=== PATIENT | female | born 1990 | race Caucasian/White ===

== ENCOUNTER 2016-09-24 05:29 | Emergency (ER) | payer OTHER ==
[2016-09-24 06:00] VITALS: BMI 21.4
[2016-09-24] MEDS ORDERED: SODIUM CHLORIDE 0.9% 1000 ML INFUS.BAG IV ONE (06:00)
[2016-09-24] MEDS ORDERED: ACETAMINOPHEN 325 MG TABLET (FP) PO ONE (06:07)
[2016-09-24] MEDS ORDERED: METOCLOPRAMIDE HCL INJECTION 10 MG/2 ML VIAL IVPUSH ONE (06:07)
--- NOTE | 2016-09-24 06:09 | PDOC ---
Attending Attestation - Resident Resident Name: Kelvin Felipe - ED Attending Attestation I have performed the following: I have examined & evaluated the patient, The case was reviewed & discussed with the resident, I agree w/resident's findings & plan, Exceptions are as noted - HPI HPI: 09/24/16 06:07 26-year-old female with medical history of migraines presents with 2 days of generalized weakness, chills, headache, nonproductive cough and sore throat. The patient is currently on her period. She states that she has developed the symptoms but denies any sick contacts. States that this has provoked her migraine/is a migraine-like headaches. Came to the ER for further evaluation. - Physicial Exam PE: 09/24/16 06:08 GENERAL: Awake, alert, and fully oriented, in no acute distress. Dry mucous membranes. HEAD: No signs of trauma EYES: PERRLA, EOMI, sclera anicteric, conjunctiva clear ENT: Auricles normal inspection, hearing grossly normal, nares patent, oropharynx clear without exudates. NECK: Normal ROM, supple, no lymphadenopathy, JVD, or masses LUNGS: Breath sounds equal, clear to auscultation bilaterally. No wheezes, and no crackles HEART: Regular rate and rhythm, normal S1 and S2, no murmurs, rubs or gallops ABDOMEN: Soft, nontender, normoactive bowel sounds. No guarding, no rebound. No masses EXTREMITIES: Normal range of motion, no edema. No clubbing or cyanosis. No cords, erythema, or tenderness NEUROLOGICAL: Cranial nerves II through XII grossly intact. Normal speech, normal gait SKIN: Warm, Dry, normal turgor, no rashes or lesions noted. - Medical Decision Making 09/24/16 06:08 I suspect that the patient has viral syndrome. We'll give IV fluids and treat her migraines. Check blood work, urine analysis and reassess. If the patient is feeling better and the workup is unremarkable, the patient can be discharged home with supportive care. Encourage by mouth intake.
[2016-09-24] MEDS ORDERED: ACETAMINOPHEN 325 MG TABLET (FP) ONE (06:21)
[2016-09-24] MEDS ORDERED: METOCLOPRAMIDE HCL INJECTION 10 MG/2 ML VIAL ONE (06:21)
--- NOTE | 2016-09-24 06:21 | PDOC ---
History of Present Illness - General Chief Complaint: Weakness Stated Complaint: WEAKNESS Time Seen by Provider: 09/24/16 05:39 History Source: Patient Exam Limitations: No Limitations - History of Present Illness Initial Comments: 09/24/16 06:09 Patient is a 26F with no significant PMH who presents to the ED with 2 days of weakness, feeling cold, and migraines. She admits to chills, a sore throat, a nonproductive cough, stuffy nose, and migraines. She denies any sick contacts, recent travel, diarrhea, vomiting, dysuria, discharge, trouble swallowing, and abdominal pain. She has been eating and drinking well. PSH: none Social: Does not drink, smoke, or use recreational drugs Allergies: none Meds: none Past History - Past Medical History Allergies/Adverse Reactions: Allergies Allergy/AdvReac Type Severity Reaction Status Date / Time No Known Allergies Allergy Verified 09/24/16 05:54 Home Medications: Ambulatory Orders NK [No Known Home Medication] 09/24/16 Suicide Attempt (Hx): No Other medical history: Pt denies - Psycho/Social/Smoking Cessation Hx Anxiety: No Suicidal Ideation: No Smoking Status: Yes Smoking History: Never smoked Number of Cigarettes Smoked Daily: 0 Information on smoking cessation initiated: No 'Breaking Loose' booklet given: 07/25/14 Hx Alcohol Use: No Drug/Substance Use Hx: No Substance Use Type: Marijuana Review of Systems - Review of Systems Able to Perform ROS?: Yes Is the patient limited Kiswahili proficient: No Constitutional: Yes: Chills, Diaphoresis. No: Fever Respiratory: No: Shortness of Breath Cardiac (ROS): No: Chest Pain ABD/GI: No: Nausea, Vomiting, Other (Abd pain) : No: Burning, Dysuria, Discharge Neurological: Yes: Headache *Physical Exam - Vital Signs Last Vital Signs Temp Pulse Resp BP Pulse Ox 97.9 F 79 19 105/70 97 09/24/16 05:55 09/24/16 05:55 09/24/16 05:55 09/24/16 05:55 09/24/16 05:55 - Physical Exam General Appearance: Yes: Nourished, Appropriately Dressed, Mild Distress. No: Apparent Distress HEENT: positive: Normal Voice Neck: positive: Trachea midline Respiratory/Chest: positive: Lungs Clear, Normal Breath Sounds. negative: Chest Tender Cardiovascular: positive: Regular Rhythm, Regular Rate, S1, S2 Gastrointestinal/Abdominal: positive: Normal Bowel Sounds, Flat, Soft. negative : Tender Extremity: positive: Normal Inspection. negative: Swelling Integumentary: positive: Dry, Warm Neurologic: positive: Fully Oriented, Alert, Normal Mood/Affect Medical Decision Making - Medical Decision Making 09/24/16 06:23 Patient is a 26F with complaints of a migraine, shivering, and sweats for 2 days. Most likely diagnosis is a viral syndrome. I am treating the patient symptomatically and will update the patient on labs and results as they come in.
[2016-09-24 06:22] LABS: BASOPHIL 0.5 % (0-2.0); EOSINOPHIL 0.1 % (0-4.5); MCH 29.2 pg (25.7-33.7); MCHC 33.6 g/dl (32.0-36.0); MEAN CELL VOLUME 86.9 fl (80-96); NEUTROPHILS 73.4 % (42.8-82.8); PLATELET COUNT 270 K/MM3 (134-434); RDW 12.7 % (11.6-15.6); WHITE BLOOD COUNT 11.6 K/mm3 (4.0-10.0)
[2016-09-24 06:52] LABS: ALBUMIN 3.7 g/dl (3.4-5.0); ALK PHOS 56 U/L (45-117); ANION GAP 8 (8-16); BILIRUBIN,TOTAL 0.9 mg/dL (0.2-1.0); CALCIUM 8.9 mg/dL (8.5-10.1); CO2 27 mmol/L (21-32); CREATININE 0.6 mg/dL (0.55-1.02); GLUCOSE,RANDOM 96 mg/dL (74-106); SGOT/AST 37 U/L (15-37); SGPT/ALT 35 U/L (12-78); TOT PROT 7.1 g/dl (6.4-8.2)
[2016-09-24 09:40] LABS: URINE APPEARANCE CLEAR; URINE BILIRUBIN NEGATIVE (NEGATIVE); URINE COLOR LTYELLOW; URINE GLUCOSE (UA) NEGATIVE (NEGATIVE); URINE KETONE NEGATIVE (NEGATIVE); URINE NITRITE NEGATIVE (NEGATIVE); URINE PROTEIN NEGATIVE (NEGATIVE); URINE UROBILINOGEN NEGATIVE mg/dL (0.2-1.0)
[2016-09-24 09:49] LABS: URINE BLOOD 2+ (NEGATIVE); URINE LEUK ESTERASE 3+ (NEGATIVE)
[2016-09-24 09:54] VITALS: BP 92/54; PULSE 81; TEMP 97.5
[2016-09-24 10:13] LABS: URINE MARIJUANA THC NEGATIVE ng/ml (CUTOFF=50); URINE MUCUS RARE; URINE RBC 2 /hpf (0-3); URINE WBC 26 /hpf (3-5)
--- NOTE | 2016-09-24 10:35 | PDOC ---
*Physical Exam - Vital Signs Last Vital Signs Temp Pulse Resp BP Pulse Ox 97.5 F L 81 18 92/54 99 09/24/16 09:53 09/24/16 09:53 09/24/16 09:53 09/24/16 09:53 09/24/16 09:53 ED Treatment Course - LABORATORY CBC & Chemistry Diagram: 09/24/16 06:10 09/24/16 06:10 - ADDITIONAL ORDERS Additional order review: Laboratory Results 09/24/16 09/24/16 09/24/16 08:22 08:22 06:10 Sodium 138 Potassium 4.0 Chloride 103 Carbon Dioxide 27 Anion Gap 8 BUN 11 Creatinine 0.6 Creat Clearance w eGFR > 60 Random Glucose 96 Calcium 8.9 Total Bilirubin 0.9 D AST 37 D ALT 35 D Alkaline Phosphatase 56 Total Protein 7.1 Albumin 3.7 Urine Color Ltyellow Urine Appearance Clear Urine pH 6.0 Urine Protein Negative Urine Glucose (UA) Negative Urine Ketones Negative Urine Blood 2+ H Urine Nitrite Negative Urine Bilirubin Negative Urine Urobilinogen Negative Ur Leukocyte Esterase 3+ H Urine RBC 2 Urine WBC 26 Ur Epithelial Cells Rare Urine Mucus Rare Urine HCG, Qual Negative Opiates Screen Negative Methadone Screen Negative Barbiturate Screen Negative Phencyclidine Screen Negative Ur Amphetamines Screen Negative MDMA (Ecstasy) Screen Negative Benzodiazepines Screen Negative Cocaine Screen Negative U Marijuana (THC) Screen Negative 09/24/16 06:10 RBC 4.05 MCV 86.9 MCHC 33.6 RDW 12.7 MPV 7.0 L D Neutrophils % 73.4 Lymphocytes % 17.0 Monocytes % 9.0 Eosinophils % 0.1 D Basophils % 0.5 - Medications Given in the ED: ED Medications Discontinued Medications Generic Name Dose Route Start Last Admin Trade Name Perri PRN Reason Stop Dose Admin Acetaminophen 650 mg 09/24/16 06:07 09/24/16 06:33 Tylenol - PO 09/24/16 06:08 650 mg ONCE ONE Administration Diphenhydramine HCl 25 mg 09/24/16 06:07 09/24/16 06:49 Benadryl Injection - IVPUSH 09/24/16 06:08 25 mg ONCE ONE Administration Metoclopramide HCl 10 mg 09/24/16 06:07 09/24/16 06:33 Reglan Injection - IVPUSH 09/24/16 06:08 10 mg ONCE ONE Administration Sodium Chloride 1,000 ml 09/24/16 06:00 09/24/16 06:33 Normal Saline - IV 09/24/16 06:01 1,000 ml ONCE ONE Administration Progress Note - Progress Note Progress Note: Patient presented to ER with chills, WILLARD, and weakness for 2 days. Initial basic labs run by Dr. Felipe showed WBC of 11.6. Remained in ER for urinalysis results. Patient transferred to my care after shift change - Urinalysis results showed some blood and leukocyte esterase; patient confirmed she is currently menstruating. Patient reports resolution of her headache and reports resolution of her symptoms. Suspect viral cause of all symptoms and will discharge to home with instructions to return if symptoms return. Medical Decision Making - Medical Decision Making 09/24/16 10:34 Patient presented to ER with chills, WILLARD, and weakness for 2 days. WBC of 11.6. Urinalysis showed some blood and leukocyte esterase - all else normal; patient confirmed she is currently menstruating. Resolution of headache reported, suspect viral etiology of symptoms. Will discharge to home with instructions to return if symptoms return. *DC/Admit/Observation/Transfer Diagnosis at time of Disposition: Viral infection - Discharge Dispostion Disposition: HOME Condition at time of disposition: Improved - Attestations Physician Attestion: 09/24/16 10:36 I, Dr. Morris Clemente, attest that this document has been prepared under my direction and personally reviewed by me in its entirety. I further attest, that it accurately reflects all work, treatment, procedures and medical decision -making performed by me.
--- NOTE | 2016-09-24 10:54 | PDOC ---
*Physical Exam - Vital Signs Last Vital Signs Temp Pulse Resp BP Pulse Ox 97.5 F L 81 18 92/54 99 09/24/16 09:53 09/24/16 09:53 09/24/16 09:53 09/24/16 09:53 09/24/16 09:53 ED Treatment Course - LABORATORY CBC & Chemistry Diagram: 09/24/16 06:10 09/24/16 06:10 - ADDITIONAL ORDERS Additional order review: Laboratory Results 09/24/16 09/24/16 09/24/16 08:22 08:22 06:10 Sodium 138 Potassium 4.0 Chloride 103 Carbon Dioxide 27 Anion Gap 8 BUN 11 Creatinine 0.6 Creat Clearance w eGFR > 60 Random Glucose 96 Calcium 8.9 Total Bilirubin 0.9 D AST 37 D ALT 35 D Alkaline Phosphatase 56 Total Protein 7.1 Albumin 3.7 Urine Color Ltyellow Urine Appearance Clear Urine pH 6.0 Urine Protein Negative Urine Glucose (UA) Negative Urine Ketones Negative Urine Blood 2+ H Urine Nitrite Negative Urine Bilirubin Negative Urine Urobilinogen Negative Ur Leukocyte Esterase 3+ H Urine RBC 2 Urine WBC 26 Ur Epithelial Cells Rare Urine Mucus Rare Urine HCG, Qual Negative Opiates Screen Negative Methadone Screen Negative Barbiturate Screen Negative Phencyclidine Screen Negative Ur Amphetamines Screen Negative MDMA (Ecstasy) Screen Negative Benzodiazepines Screen Negative Cocaine Screen Negative U Marijuana (THC) Screen Negative 09/24/16 06:10 RBC 4.05 MCV 86.9 MCHC 33.6 RDW 12.7 MPV 7.0 L D Neutrophils % 73.4 Lymphocytes % 17.0 Monocytes % 9.0 Eosinophils % 0.1 D Basophils % 0.5 - Medications Given in the ED: ED Medications Discontinued Medications Generic Name Dose Route Start Last Admin Trade Name Perri PRN Reason Stop Dose Admin Acetaminophen 650 mg 09/24/16 06:07 09/24/16 06:33 Tylenol - PO 09/24/16 06:08 650 mg ONCE ONE Administration Diphenhydramine HCl 25 mg 09/24/16 06:07 09/24/16 06:49 Benadryl Injection - IVPUSH 09/24/16 06:08 25 mg ONCE ONE Administration Metoclopramide HCl 10 mg 09/24/16 06:07 09/24/16 06:33 Reglan Injection - IVPUSH 09/24/16 06:08 10 mg ONCE ONE Administration Sodium Chloride 1,000 ml 09/24/16 06:00 09/24/16 06:33 Normal Saline - IV 09/24/16 06:01 1,000 ml ONCE ONE Administration *DC/Admit/Observation/Transfer Diagnosis at time of Disposition: Viral illness - Discharge Dispostion Disposition: HOME Condition at time of disposition: Improved - Patient Instructions Printed Discharge Instructions: Viral Gastroenteritis Additional Instructions: Please return to the ER if you have return or worsening of symptoms. See attached instructions for viral illness care.
== END 2016-09-24 11:29 | disposition home or self-care (01) ==
LOC: JER 05:29
PROC: 3E033GC Introduction of Other Therapeutic Substance into Peripheral Vein, Percutaneous Approach (ICD-10-PCS; principal; 2016-09-24)
PROC: 3E033GC Introduction of Other Therapeutic Substance into Peripheral Vein, Percutaneous Approach (ICD-10-PCS; 2016-09-24)
DX: B34.9 Viral infection, unspecified (principal)
CPT/HCPCS: 36415; 80053; 80307; 81003; 81015; 84703; 85025; 96374; 96375; 99284-25

== ENCOUNTER 2016-10-12 19:19 | Emergency (ER) | payer OTHER ==
[2016-10-12 19:53] VITALS: BP 118/82; PULSE 87; TEMP 98.5; BMI 23.1
[2016-10-12 20:20] LABS: URINE APPEARANCE CLOUDY; URINE BILIRUBIN NEGATIVE (NEGATIVE); URINE BLOOD 2+ (NEGATIVE); URINE COLOR YELLOW; URINE GLUCOSE (UA) NEGATIVE (NEGATIVE); URINE KETONE NEGATIVE (NEGATIVE); URINE NITRITE NEGATIVE (NEGATIVE); URINE UROBILINOGEN NEGATIVE mg/dL (0.2-1.0)
[2016-10-12 20:21] LABS: URINE LEUK ESTERASE 3+ (NEGATIVE); URINE PROTEIN 3+ (NEGATIVE)
[2016-10-12 20:28] LABS: URINE BACTERIA MODERATE /hpf (NONE SEEN); URINE RBC 225 /hpf (0-3); URINE WBC 432 /hpf (3-5)
--- NOTE | 2016-10-12 20:35 | PDOC ---
History of Present Illness - General Chief Complaint: Pain Stated Complaint: POSSIBLE UTI Time Seen by Provider: 10/12/16 19:49 History Source: Patient Exam Limitations: No Limitations - History of Present Illness Travel History: No Initial Comments: 10/12/16 20:33 Complaints of pain burning and frequency 3 days. No nausea no fevers, no back pain. States sister gave her 1 tablet of Bactrim yesterday thinking to help UTI complaints. Timing/Duration: reports: getting worse, changing over time Quality: reports: mild Abdominal Pain Onset Location: reports: suprapubic Pain Radiation: reports: no radiation Past History - Travel Traveled outside of the country in the last 30 days: No Close contact w/someone who was outside of country & ill: No - Past Medical History Allergies/Adverse Reactions: Allergies Allergy/AdvReac Type Severity Reaction Status Date / Time No Known Allergies Allergy Verified 10/12/16 19:42 Home Medications: Ambulatory Orders Cefdinir [Omnicef -] 300 mg PO BID #10 capsule 10/12/16 Phenazopyridine HCl [Pyridium -] 200 mg PO PC #12 tablet 10/12/16 Suicide Attempt (Hx): No Other medical history: Pt denies - Psycho/Social/Smoking Cessation Hx Anxiety: No Suicidal Ideation: No Smoking Status: Yes Smoking History: Current every day smoker Have you smoked in the past 12 months: Yes Number of Cigarettes Smoked Daily: 2 Information on smoking cessation initiated: No 'Breaking Loose' booklet given: 07/25/14 Hx Alcohol Use: No Drug/Substance Use Hx: No Substance Use Type: Marijuana Review of Systems - Review of Systems Able to Perform ROS?: Yes Is the patient limited Syriac proficient: Yes Constitutional: Yes: Symptoms Reported, See HPI, Malaise. No: Fever HEENTM: Yes: See HPI. No: Symptoms Reported Respiratory: Yes: See HPI. No: Symptoms reported : Yes: Symptoms Reported, See HPI, Burning, Dysuria, Frequency, Hematuria Musculoskeletal: No: Symptoms Reported All Other Systems: Reviewed and Negative *Physical Exam - Vital Signs Last Vital Signs Temp Pulse Resp BP Pulse Ox 98.5 F 87 20 118/82 97 10/12/16 19:42 10/12/16 19:42 10/12/16 19:42 10/12/16 19:42 10/12/16 19:42 - Physical Exam General Appearance: Yes: Nourished, Appropriately Dressed, Apparent Distress, Mild Distress HEENT: positive: ELMO, Normal ENT Inspection, TMs Normal, Pharynx Normal Neck: positive: Supple Respiratory/Chest: positive: Lungs Clear Cardiovascular: positive: Regular Rhythm Gastrointestinal/Abdominal: positive: Tender (suprapubic), Soft Musculoskeletal: positive: Normal Inspection. 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, Fully Oriented, Alert, Normal Mood/ Affect, Normal Response, Motor Strength 07/13 ED Treatment Course - ADDITIONAL ORDERS Additional order review: Laboratory Results 10/12/16 20:00 Urine Color Yellow Urine Appearance Cloudy Urine pH 8.0 D Urine Protein 3+ H Urine Glucose (UA) Negative Urine Ketones Negative Urine Blood 2+ H Urine Nitrite Negative Urine Bilirubin Negative Urine Urobilinogen Negative Ur Leukocyte Esterase 3+ H Urine HCG, Qual Negative Progress Note - Progress Note Progress Note: Urinaryn Tract infection, we'll treat with Omnicef/ pyridium *DC/Admit/Observation/Transfer Diagnosis at time of Disposition: UTI (urinary tract infection) Qualifiers: Urinary tract infection type: acute cystitis Hematuria presence: with hematuria Qualified Code(s): N30.01 - Acute cystitis with hematuria - Discharge Dispostion Disposition: HOME Condition at time of disposition: Stable Admit: No - Prescriptions Prescriptions: Cefdinir [Omnicef -] 300 mg PO BID #10 capsule Phenazopyridine HCl [Pyridium -] 200 mg PO PC #12 tablet - Patient Instructions Printed Discharge Instructions: DI for Urinary Tract Infection (UTI) Additional Instructions: Rest, drink lots of fluids: Teas, water, soups Avoid contact with others until fevers and symptoms resolved Lots of handwashing and good hygiene Continue [id number] medications for symptomatic relief Tylenol or Motrin for fever and pain Continue all of antibiotics until completed- Omnicef 1 tablet every 12 hours for 5 days total May use Pyridium tablet 1 every 8 hours as needed until painful urination stops Followup with private physician in one week for repeat urinalysis/reevaluation Return to emergency department for worsened symptoms, fevers, dehydration
== END 2016-10-12 20:38 | disposition home or self-care (01) ==
LOC: JERFT 19:19
DX: N30.01 Acute cystitis with hematuria (principal); F17.210 Nicotine dependence, cigarettes, uncomplicated
CPT/HCPCS: 81003; 81015; 84703; 87086; 87186; 99281-25

== ENCOUNTER 2017-03-28 15:26 | Emergency (ER) | payer OTHER ==
--- NOTE | 2017-03-28 15:34 | PDOC ---
Rapid Medical Evaluation Time Seen by Provider: 03/28/17 15:32 Medical Evaluation: Allergies Allergy/AdvReac Type Severity Reaction Status Date / Time No Known Allergies Allergy Verified 10/12/16 19:42 03/28/17 15:32 I have performed a brief in person evaluation of this patient. The patient presents with chief complaint of : urinary urgency and burning no fever . LMP 03/22/16 Pertinent PE findings: none I have ordered the following: urine preg, uA, urine culture The patient will proceed to the ER for further evaluation.
[2017-03-28 15:54] VITALS: BP 137/74; PULSE 78; TEMP 98.4; BMI 22.3
[2017-03-28 16:53] LABS: URINE APPEARANCE CLOUDY; URINE BILIRUBIN NEGATIVE (NEGATIVE); URINE BLOOD 2+ (NEGATIVE); URINE COLOR YELLOW; URINE GLUCOSE (UA) NEGATIVE (NEGATIVE); URINE KETONE NEGATIVE (NEGATIVE); URINE NITRITE NEGATIVE (NEGATIVE); URINE UROBILINOGEN NEGATIVE mg/dL (0.2-1.0)
[2017-03-28 16:54] LABS: HCG,QUALITATIVE URINE NEGATIVE
[2017-03-28 16:55] LABS: URINE LEUK ESTERASE 3+ (NEGATIVE); URINE PROTEIN 1+ (NEGATIVE)
[2017-03-28 16:57] LABS: EPI CELLS FEW /HPF (FEW); URINE BACTERIA MODERATE /hpf (NONE SEEN); URINE HYALINE CAST 12 /lpf; URINE MUCUS MODERATE
--- NOTE | 2017-03-28 17:13 | PDOC ---
History of Present Illness - General Chief Complaint: Urinary Problem Stated Complaint: PAIN Time Seen by Provider: 03/28/17 15:32 History Source: Patient Exam Limitations: No Limitations - History of Present Illness Travel History: No Initial Comments: 03/28/17 17:14 Here with complaints of pain, repeat, burning with urination 3 days. States experience same symptoms last summer and was diagnosed with urinary tract infection. Patient feels has same. Denies fevers or chills, but has felt malaise over the past few days. No bowel problems, no vaginal drainage or problems Timing/Duration: reports: getting worse Quality: reports: moderate, cramping, fullness Abdominal Pain Onset Location: reports: suprapubic Pain Radiation: reports: no radiation Past History - Travel Traveled outside of the country in the last 30 days: No Close contact w/someone who was outside of country & ill: No - Past Medical History Allergies/Adverse Reactions: Allergies Allergy/AdvReac Type Severity Reaction Status Date / Time No Known Allergies Allergy Verified 03/28/17 15:52 Home Medications: Ambulatory Orders Cefdinir [Omnicef -] 300 mg PO BID #10 capsule 03/28/17 Phenazopyridine HCl [Pyridium -] 200 mg PO PC #12 tablet 03/28/17 COPD: No Other medical history: DENIES. - Suicide/Smoking/Psychosocial Hx Smoking Status: Yes Smoking History: Never smoked Have you smoked in the past 12 months: Yes Number of Cigarettes Smoked Daily: 0 'Breaking Loose' booklet given: 07/25/14 Hx Alcohol Use: No Drug/Substance Use Hx: No Substance Use Type: Marijuana Review of Systems - Review of Systems Able to Perform ROS?: Yes Is the patient limited Djiboutian proficient: Yes Constitutional: Yes: Symptoms Reported, See HPI, Fever, Malaise HEENTM: Yes: See HPI. No: Symptoms Reported Respiratory: No: Symptoms reported : Yes: Symptoms Reported, See HPI, Burning, Dysuria, Frequency Musculoskeletal: Yes: Symptoms Reported Neurological: No: Symptoms reported All Other Systems: Reviewed and Negative *Physical Exam - Vital Signs Last Vital Signs Temp Pulse Resp BP Pulse Ox 98.4 F 78 16 137/74 98 03/28/17 15:53 03/28/17 15:53 03/28/17 15:53 03/28/17 15:53 03/28/17 15:53 - Physical Exam General Appearance: Yes: Nourished, Appropriately Dressed, Apparent Distress HEENT: positive: ELMO, Normal ENT Inspection, TMs Normal, Pharynx Normal Neck: positive: Supple. negative: Tender Respiratory/Chest: positive: Lungs Clear Gastrointestinal/Abdominal: positive: Tender, Soft. 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, Fully Oriented, Alert, Normal Mood/ Affect, Normal Response, Motor Strength 07/13 ED Treatment Course - ADDITIONAL ORDERS Additional order review: Laboratory Results 03/28/17 15:39 Urine Color Yellow Urine Appearance Cloudy Urine pH 5.0 D Ur Specific [place] 1.021 Urine Protein 1+ H D Urine Glucose (UA) Negative Urine Ketones Negative Urine Blood 2+ H Urine Nitrite Negative Urine Bilirubin Negative Urine Urobilinogen Negative Ur Leukocyte Esterase 3+ H Urine WBC (Auto) 1264 Urine RBC (Auto) 30 Ur Epithelial Cells Few Urine Bacteria Moderate Hyaline Casts 12 Urine Mucus Moderate Urine HCG, Qual Negative Progress Note - Progress Note Progress Note: UTI, we'll treat with Omnicef as responded well with last episode. Patient encouraged to follow-up with PMD and possibly urologist for evaluation of frequent UTI *DC/Admit/Observation/Transfer Diagnosis at time of Disposition: UTI (urinary tract infection) Qualifiers: Urinary tract infection type: acute cystitis Hematuria presence: without hematuria Qualified Code(s): N30.00 - Acute cystitis without hematuria - Discharge Dispostion Disposition: HOME Condition at time of disposition: Stable Admit: No - Referrals Referrals: Anjum Galarza MD [Staff Physician] - - Patient Instructions Printed Discharge Instructions: DI for Urinary Tract Infection (UTI) Additional Instructions: Rest, drink lots of fluids: Teas, water, soups Avoid contact with others until fevers and symptoms resolved Lots of handwashing and good hygiene Continue [id number] medications for symptomatic relief Tylenol or Motrin for fever and pain Continue all of antibiotics until completed Followup with private physician in one week for repeat urinalysis/reevaluation Return to emergency department for worsened symptoms, fevers, dehydration - Post Discharge Activity Forms/Work/School Notes: Back to Work
== END 2017-03-28 17:45 | disposition home or self-care (01) ==
LOC: JERFT 15:26 → JER 15:26 → JERFT 17:45
DX: N30.00 Acute cystitis without hematuria (principal)
CPT/HCPCS: 81003; 81015; 84703; 87086; 87186; 99281-25

== ENCOUNTER 2017-08-03 22:59 | Emergency (ER) | payer OTHER ==
[2017-08-03 23:05] VITALS: BP 112/69; PULSE 95; TEMP 98.5; BMI 24.2
--- NOTE | 2017-08-03 23:57 | PDOC ---
History of Present Illness - General Chief Complaint: Pain Stated Complaint: 16 WEEKS - ABDOMINAL PAIN Time Seen by Provider: 08/03/17 23:12 History Source: Patient Exam Limitations: No Limitations - History of Present Illness Travel History: No Initial Comments: 08/03/17 23:58 Best Contact: PCP:Mike Lopez Pmhx: N/A Pshx:N/A Allergies:NKDA FH:N/A Social Hx: Cigarettes/ 0 Alcohol/ 0 Drugs/0 LMP:04/12/2017 27-year-old female presents to the emergency department complaining of constipation with suprapubic cramping without fever, chills, nausea/vomiting, headache, dizziness, lightheadedness, chest pain, shortness of breath, abdominal discomfort, flank pains, urinary symptoms, frequency/urgency/hesitancy , hematuria. Patient states her last good bowel movement was approximately 7-8 days ago. Patient states she had a very small bowel movement yesterday which which is the size of a quarter. Had transvaginal US [id number] ago/wnl Past History - Past Medical History Allergies/Adverse Reactions: Allergies Allergy/AdvReac Type Severity Reaction Status Date / Time No Known Allergies Allergy Verified 08/03/17 23:04 Home Medications: Ambulatory Orders Cefdinir [Omnicef -] 300 mg PO BID #10 capsule 03/28/17 Phenazopyridine HCl [Pyridium -] 200 mg PO PC #12 tablet 03/28/17 Nitrofurantoin Monohyd/M-Cryst [Macrobid -] 100 mg PO BID #14 capsule 08/04/17 COPD: No - Suicide/Smoking/Psychosocial Hx Smoking Status: Yes Smoking History: Never smoked Have you smoked in the past 12 months: Yes Number of Cigarettes Smoked Daily: 0 'Breaking Loose' booklet given: 07/25/14 Hx Alcohol Use: No Drug/Substance Use Hx: No Substance Use Type: Marijuana Review of Systems - Review of Systems Able to Perform ROS?: Yes Comments:: 08/04/17 00:00 CONSTITUTIONAL: Absent: fever, chills, diaphoresis, generalized weakness, malaise, loss of appetite CARDIOVASCULAR: Absent: chest pain, loss of consciousness, palpitations, irregular heart rate, peripheral edema RESPIRATORY: Absent: cough, shortness of breath, dyspnea with exertion, orthopnea, wheezing, stridor, hemoptysis GASTROINTESTINAL: Left suprapubic cramping Absent: abdominal pain, abdominal distension, nausea, vomiting, diarrhea, constipation, melena, hematochezia GENITOURINARY: Absent: dysuria, frequency, urgency, hesitancy, hematuria, flank pain, genital pain MUSCULOSKELETAL: Absent: myalgia, arthralgia, joint swelling SKIN: Absent: rash, itching, pallor HEMATOLOGIC/IMMUNOLOGIC: Absent: easy bleeding, easy bruising, lymphadenopathy, frequent infections ENDOCRINE: Absent: unexplained weight gain, unexplained weight loss, heat intolerance, cold intolerance NEUROLOGIC: Absent: headache, focal weakness or paresthesias, dizziness, unsteady gait, seizure, mental status changes, bladder or bowel incontinence PSYCHIATRIC: Absent: anxiety, depression, suicidal or homicidal ideation, hallucinations. 08/04/17 00:25 Is the patient limited Wolof proficient: No *Physical Exam - Vital Signs Last Vital Signs Temp Pulse Resp BP Pulse Ox 98.5 F 95 H 18 112/69 98 08/03/17 23:04 08/03/17 23:04 08/03/17 23:04 08/03/17 23:04 08/03/17 23:04 - Physical Exam Comments: 08/04/17 00:00 GENERAL: Well developed, well nourished. Awake and alert. No acute distress. HEENT: Normocephalic, atraumatic. PERRLA, EOMI. No conjunctival pallor. Sclera are non- icteric. Moist mucous membranes. Oropharynx is clear. NECK: Supple. Full ROM. No JVD. Carotid pulses 2+ and symmetric, without bruits. No thyromegaly. No lymphadenopathy. CARDIOVASCULAR: Regular rate and rhythm. No murmurs, rubs, or gallops. Distal pulses are 2+ and symmetric. PULMONARY: No evidence of respiratory distress. Lungs clear to auscultation bilaterally. No wheezing, rales or rhonchi. ABDOMINAL: Soft. Non-tender. Non-distended. No rebound or guarding. No organomegaly. Normoactive bowel sounds. MUSCULOSKELETAL Normal range of motion at all joints. No bony deformities or tenderness. No CVA tenderness. EXTREMITIES: No cyanosis. No clubbing. No edema. No calf tenderness. SKIN: Warm and dry. Normal capillary refill. No rashes. No jaundice. NEUROLOGICAL: Alert, awake, appropriate. Cranial nerves 2-12 intact. No deficits to light touch and temperature in face, upper extremities and lower extremities. No motor deficits in the in face, upper extremities and lower extremities. Normoreflexic in the upper and lower extremities. Normal speech. Toes are down- going bilaterally. Gait is normal without ataxia. PSYCHIATRIC: Cooperative. Good eye contact. Appropriate mood and affect. Pelvic: External genitalia normal without lesions. Vaginal vault is clear without blood or discharge. Cervix is long and closed. ED Treatment Course - LABORATORY CBC & Chemistry Diagram: 08/04/17 00:10 08/04/17 00:10 - RADIOLOGY Radiograph Interpretation: 08/04/17 03:49 Transvaginal ultrasound shows live IUP with estimated age of 16 weeks and 1 day without abnormalities *DC/Admit/Observation/Transfer Diagnosis at time of Disposition: Constipation Qualifiers: Constipation type: unspecified constipation type Qualified Code(s): K59.00 - Constipation, unspecified UTI (urinary tract infection) Qualifiers: Urinary tract infection type: acute cystitis Hematuria presence: without hematuria Qualified Code(s): N30.00 - Acute cystitis without hematuria - Discharge Dispostion Disposition: HOME Condition at time of disposition: Stable Decision to Admit order: No - Prescriptions Prescriptions: Nitrofurantoin Monohyd/M-Cryst [Macrobid -] 100 mg PO BID #14 capsule - Referrals Referrals: Rashida Patel MD [Staff Physician] - - Patient Instructions Printed Discharge Instructions: DI for Urinary Tract Infection (UTI), DI for Constipation Additional Instructions: Increase fluids Take antibiotics until completion/Macrobid [id number] stool softener Follow-up with your workers compensation legal secretary within 48 hours Return back to the emergency department for severe/persistent or worsening symptoms Your beta hCG which is low [place] [address].6 You had a transvaginal ultrasound while in the emergency department today which shows a live intrauterine with estimated age of 16 weeks and 1 day without abnormalities - Post Discharge Activity
[2017-08-04] MEDS ORDERED: DOCUSATE SODIUM 100 MG CAPSULE (FP) PO ONE ×2 (00:25→01:19)
[2017-08-04 00:42] LABS: BASO % 0.3 % (0-2.0); HEMOGLOBIN 11.3 GM/dL (10.7-15.3); MCH 30.8 pg (25.7-33.7); NEUT % 72.9 % (42.8-82.8)
[2017-08-04 00:49] LABS: EOS % 0.9 % (0-4.5); HEMATOCRIT 32.6 % (32.4-45.2); LYMPH % 18.2 % (8-40); MCHC 34.6 g/dl (32.0-36.0); MEAN CELL VOLUME 88.8 fl (80-96); MONO % 7.7 % (3.8-10.2); RBC 3.67 M/mm3 (3.60-5.2); RDW 13.7 % (11.6-15.6); WHITE BLOOD COUNT 9.8 K/mm3 (4.0-10.0)
[2017-08-04 00:51] LABS: ALBUMIN 3.4 g/dl (3.4-5.0); ANION GAP 8 (8-16); BILIRUBIN,TOTAL 0.3 mg/dL (0.2-1.0); BLOOD UREA NITROGEN 8 mg/dL (7-18); CALCIUM 8.5 mg/dL (8.5-10.1); CHLORIDE 104 mmol/L (98-107); CO2 24 mmol/L (21-32); CREATININE 0.5 mg/dL (0.55-1.02); GLUCOSE,RANDOM 79 mg/dL (74-106); SGPT/ALT 17 U/L (12-78); SODIUM 136 mmol/L (136-145); TOT PROT 7.1 g/dl (6.4-8.2)
[2017-08-04 00:52] LABS: URINE APPEARANCE CLEAR; URINE BILIRUBIN NEGATIVE (<2.0 mg/dL); URINE COLOR YELLOW; URINE GLUCOSE (UA) NEGATIVE (NEGATIVE); URINE KETONE NEGATIVE (NEGATIVE); URINE LEUK ESTERASE TRACE (NEGATIVE); URINE NITRITE NEGATIVE (NEGATIVE); URINE PROTEIN NEGATIVE (NEGATIVE)
[2017-08-04 00:59] LABS: EPI CELLS RARE /HPF (FEW); URINE BACTERIA RARE /hpf (NONE SEEN); URINE MUCUS RARE
[2017-08-04 01:08] LABS: ALK PHOS 36 U/L (45-117)
[2017-08-04 01:09] LABS: POTASSIUM 4.3 mmol/L (3.5-5.1); SGOT/AST 24 U/L (15-37)
--- NOTE | 2017-08-04 01:14 | PDOC ---
*Physical Exam - Vital Signs Last Vital Signs Temp Pulse Resp BP Pulse Ox 98.5 F 95 H 18 112/69 98 08/03/17 23:04 08/03/17 23:04 08/03/17 23:04 08/03/17 23:04 08/03/17 23:04 - Physical Exam Comments: 08/04/17 01:10 VSS well appearing, nad soft/nt/nd bs nl. ? suprapubic discomfort to palpation, no g/r. no cvat. ED Treatment Course - LABORATORY CBC & Chemistry Diagram: 08/04/17 00:10 08/04/17 00:10 - ADDITIONAL ORDERS Additional order review: Laboratory Results 08/04/17 08/04/17 00:10 00:10 Sodium 136 Potassium 4.3 Chloride 104 Carbon Dioxide 24 Anion Gap 8 BUN 8 Creatinine 0.5 L Creat Clearance w eGFR > 60 Random Glucose 79 Calcium 8.5 Total Bilirubin 0.3 D AST 24 ALT 17 Alkaline Phosphatase 36 L Total Protein 7.1 Albumin 3.4 Beta HCG, Quant 48983.6 Urine Color Yellow Urine Appearance Clear Urine pH 7.0 D Ur Specific [place] 1.023 Urine Protein Negative Urine Glucose (UA) Negative Urine Ketones Negative Urine Blood Negative Urine Nitrite Negative Urine Bilirubin Negative Urine Urobilinogen 2.0 H Ur Leukocyte Esterase Trace Urine WBC (Auto) 7 Urine RBC (Auto) 1 Ur Epithelial Cells Rare Urine Bacteria Rare Urine Mucus Rare 08/04/17 00:10 RBC 3.67 MCV 88.8 MCHC 34.6 RDW 13.7 Neutrophils % 72.9 Lymphocytes % 18.2 Monocytes % 7.7 Eosinophils % 0.9 D Basophils % 0.3 Medical Decision Making - Medical Decision Making 08/04/17 01:11 Patient seen and evaluated with the nurse practitioner. I agree with the overall evaluation, assessment, and management with the following summary of visit: Healthy 27-year-old female at about 16 weeks gestation presents with suprapubic discomfort today. No bleeding or discharge, no dysuria or frequency, no fevers or chills. Has been constipated for a few days, no vomiting. Presents for evaluation, has had normal ultrasounds so far in her . Vital signs are normal Abdomen is benign with very mild suprapubic discomfort to palpation 27-year-old female second trimester with lower abdominal/suprapubic cramping, no bleeding. Possible UTI, possible constipation, rule out [employer] source. Labs, urinalysis ultrasound Dispo accordingly UA with trace leuk and 7WBC. Pending ultrasound. If u/s wnl, can d/c home on empiric abx (cx sent) and suppository. *DC/Admit/Observation/Transfer Diagnosis at time of Disposition: Constipation Qualifiers: Constipation type: unspecified constipation type Qualified Code(s): K59.00 - Constipation, unspecified UTI (urinary tract infection) Qualifiers: Urinary tract infection type: acute cystitis Hematuria presence: without hematuria Qualified Code(s): N30.00 - Acute cystitis without hematuria - Discharge Dispostion Condition at time of disposition: Stable - Prescriptions Prescriptions: Nitrofurantoin Monohyd/M-Cryst [Macrobid -] 100 mg PO BID #14 capsule - Referrals Referrals: Rashida Patel MD [Staff Physician] - - Patient Instructions Printed Discharge Instructions: DI for Urinary Tract Infection (UTI), DI for Constipation Additional Instructions: Increase fluids Take antibiotics until completion/Macrobid [id number] stool softener Follow-up with your executive search consultant within 48 hours Return back to the emergency department for severe/persistent or worsening symptoms - Post Discharge Activity
[2017-08-04] MEDS ORDERED: NITROFURANTOIN MACROCRYSTAL 50 MG CAPSULE (FP) PO SCH (01:15)
[2017-08-04] MEDS ORDERED: NITROFURANTOIN MACROCRYSTAL 50 MG CAPSULE (FP) ONE (01:19)
[2017-08-04 01:52] LABS: MEAN PLT VOLUME 8.4 fl (7.5-11.1); PLATELET COUNT 225 K/MM3 (134-434)
== END 2017-08-04 04:23 | disposition home or self-care (01) ==
LOC: JER 22:59
DX: O26.892 Other specified pregnancy related conditions, second trimester (principal); O23.32 Infections of other parts of urinary tract in pregnancy, second trimester; K59.00 Constipation, unspecified; Z3A.16 16 weeks gestation of pregnancy
CPT/HCPCS: 36415; 76801-TC; 80053; 81003; 81015; 84702; 85025; 99281-25

== ENCOUNTER 2017-11-11 19:56 | Emergency (ER) | payer OTHER ==
[2017-11-11 20:08] VITALS: BMI 25.2
[2017-11-11] MEDS ORDERED: SODIUM CHLORIDE 0.9% 500 ML INFUS.BAG IV ONE (20:52)
--- NOTE | 2017-11-11 21:00 | PDOC ---
History of Present Illness - General History Source: Patient Exam Limitations: No Limitations - History of Present Illness Initial Comments: 11/11/17 20:53 Patient is a 27 year old female , LMP 04/13/17, who is 30 weeks , c/ o dizziness - vertigo since this am. States sudden onset of symptoms while she was eating this morning. States she laid down went to sleep but when she work up this evening she still had dizziness. States currently symptoms and not very bad. Denies vaginal bleeding, no leakage of fluid, no abd pain, no dysuria. (+) kicks. PMD: Dr. Barton OBS: [address] PMHx: as above PSOCHx: neg etoh, drug, ALL: NKDA GENERAL/CONSTITUTIONAL: [No fever or chills. No weakness. No weight change.] HEAD, EYES, EARS, NOSE AND THROAT: [No change in vision. No ear pain or discharge. No sore throat.] CARDIOVASCULAR: [No chest pain or shortness of breath.] RESPIRATORY: [No cough, wheezing, or hemoptysis.] GASTROINTESTINAL: [No nausea, vomiting, diarrhea or constipation. No rectal bleeding.] GENITOURINARY: [No dysuria, frequency, or change in urination.] MUSCULOSKELETAL: [No joint or muscle swelling or pain. No neck or back pain.] SKIN AND BREASTS: [No rash or easy bruising.] NEUROLOGIC: [No headache, vertigo, loss of consciousness, or loss of sensation.] PSYCHIATRIC: [No depression or anxiety.] ENDOCRINE: [No increased thirst. No abnormal weight change.] HEMATOLOGIC/LYMPHATIC: [No anemia, easy bleeding, or history of blood clots.] ALLERGIC/IMMUNOLOGIC: [No hives or skin allergy. No latex allergy.] GENERAL: [The patient is awake, alert, and fully oriented, in no acute distress. ] HEAD: [Normal with no signs of trauma.] EYES: [Pupils equal, round and reactive to light, extraocular movements intact, sclera anicteric, conjunctiva clear.] ENT: [Ears normal, nares patent, oropharynx clear without exudates. Moist mucous membranes.] NECK: [Normal range of motion, supple without lymphadenopathy, JVD, or masses.] LUNGS: [Breath sounds equal, clear to auscultation bilaterally. No wheezes, and no crackles.] HEART: [Regular rate and rhythm, normal S1 and S2 without murmur, rub.] ABDOMEN: [Soft, nontender, (+) gravid 30 weeks, normoactive bowel sounds. No guarding, no rebound. No masses.] EXTREMITIES: [Normal range of motion, no edema. No clubbing or cyanosis. No cords, erythema, or tenderness.] NEUROLOGICAL: [Cranial nerves II through XII grossly intact. Normal speech, normal gait, no nystagmus] PSYCH: [Normal mood, normal affect.] SKIN: [Warm, Dry, normal turgor, no rashes or lesions noted.] <China Lancaster - Last Filed: 11/12/17 01:30> <Bernie Badillo - Last Filed: 11/12/17 04:31> - General Chief Complaint: Lightheaded Stated Complaint: DIZZINESS/30 WKS Time Seen by Provider: 11/11/17 20:43 Past History - Past Medical History COPD: No - Suicide/Smoking/Psychosocial Hx Smoking Status: Yes Smoking History: Never smoked Have you smoked in the past 12 months: No Number of Cigarettes Smoked Daily: 0 Information on smoking cessation initiated: No 'Breaking Loose' booklet given: 07/25/14 Hx Alcohol Use: No Drug/Substance Use Hx: No Substance Use Type: None <China Lancaster - Last Filed: 11/12/17 01:30> <Bernie Badillo - Last Filed: 11/12/17 04:31> - Past Medical History Allergies/Adverse Reactions: Allergies Allergy/AdvReac Type Severity Reaction Status Date / Time No Known Allergies Allergy Verified 08/03/17 23:04 Home Medications: Ambulatory Orders Cefdinir [Omnicef -] 300 mg PO BID #10 capsule 03/28/17 Phenazopyridine HCl [Pyridium -] 200 mg PO PC #12 tablet 03/28/17 Nitrofurantoin Monohyd/M-Cryst [Macrobid -] 100 mg PO BID #14 capsule 08/04/17 Cephalexin [Keflex] 500 mg PO BID #14 capsule 11/11/17 *Physical Exam - Vital Signs Last Vital Signs Temp Pulse Resp BP Pulse Ox 99.5 F 100 H 17 108/74 100 11/11/17 20:06 11/11/17 20:06 11/11/17 20:06 11/11/17 20:06 11/11/17 20:06 <China Lancaster - Last Filed: 11/12/17 01:30> - Vital Signs Last Vital Signs Temp Pulse Resp BP Pulse Ox 98.4 F 86 18 106/64 97 11/12/17 00:15 11/12/17 00:15 11/12/17 00:15 11/12/17 00:15 11/11/17 22:57 <Bernie Badillo Abyrobertzaina - Last Filed: 11/12/17 04:31> ED Treatment Course - LABORATORY CBC & Chemistry Diagram: 11/11/17 21:35 11/11/17 21:35 <China Lancaster - Last Filed: 11/12/17 01:30> - LABORATORY CBC & Chemistry Diagram: 11/11/17 21:35 11/11/17 21:35 - ADDITIONAL ORDERS Additional order review: Laboratory Results 11/11/17 11/11/17 21:35 21:35 Sodium 137 Potassium 4.1 Chloride 103 Carbon Dioxide 25 Anion Gap 9 BUN 7 Creatinine 0.4 L Creat Clearance w eGFR > 60 Random Glucose 87 Calcium 8.5 Urine Color Dkyellow Urine Appearance Slcloudy Urine pH 5.0 D Ur Specific [place] 1.026 Urine Protein Negative Urine Glucose (UA) Negative Urine Ketones Negative Urine Blood Negative Urine Nitrite Negative Urine Bilirubin Negative Urine Urobilinogen 2.0 H Ur Leukocyte Esterase 2+ H Urine WBC (Auto) 81 Urine RBC (Auto) 8 Ur Epithelial Cells Rare Urine Bacteria Rare Hyaline Casts 3 Urine Mucus Many 11/11/17 21:35 RBC 3.32 L MCV 87.1 MCHC 34.2 RDW 12.8 MPV 7.4 L D Neutrophils % 74.3 Lymphocytes % 17.1 Monocytes % 7.7 Eosinophils % 0.8 Basophils % 0.1 - Medications Given in the ED: ED Medications Discontinued Medications Generic Name Dose Route Start Last Admin Trade Name Freq PRN Reason Stop Dose Admin Cephalexin HCl 500 mg 11/11/17 23:03 11/11/17 23:22 Keflex - PO 11/11/17 23:04 500 mg ONCE ONE Administration Sodium Chloride 1,000 ml 11/11/17 20:52 11/11/17 21:40 Normal Saline - IV 11/11/17 20:53 1,000 ml ONCE ONE Administration <Bernie Badillo - Last Filed: 11/12/17 04:31> Medical Decision Making - Medical Decision Making 11/11/17 20:53 Patient is a 27 year old female , LMP 04/13/17, who is 6 months , c/ o dizziness - vertigo since this am. States sudden onset of symptoms while she was eating this morning mostly due to dehydration will get labs hydrates reassess 11/11/17 22:52 Patient states she is improved symptoms resolved. Case d/w with Miranda in OBS will sent the patient for monitoring EKG SR rate 81, NAD, (-) ST-T wave changes Selected Entries 11/11/17 22:57 Temperature 98.2 F Pulse Rate [ 94 H Apical] Respiratory 20 Rate Blood Pressure 101/55 [Right Arm] O2 Sat by Pulse 97 Oximetry (%) Laboratory Tests 11/11/17 21:35 Urine Color Dkyellow Urine Appearance Slcloudy Urine pH 5.0 D Ur Specific [place] 1.026 Urine Urobilinogen 2.0 H Ur Leukocyte Esterase 2+ H Urine WBC (Auto) 81 Urine RBC (Auto) 8 Noted to have UTI given Keflex I discussed the physical exam findings, ancillary test results and final diagnoses with the patient. I answered all of the patient's questions. The patient was satisfied with the care received and felt comfortable with the discharge plan and treatment plan. The Patient agrees to follow up with the primary care physician within 24-72 hours. <China Lancaster - Last Filed: 11/12/17 01:30> - Medical Decision Making The patient was seen and evaluated in conjunction with midlevel provider under my direct supervision, ancillary studies were reviewed. I agree with the plan as outlined by JOHNNY Arredondo. 11/12/17 04:31 <Bernie Badillo - Last Filed: 11/12/17 04:31> *DC/Admit/Observation/Transfer <China Lancaster - Last Filed: 11/12/17 01:30> <Bernie Badillo - Last Filed: 11/12/17 04:31> Diagnosis at time of Disposition: Dizziness UTI (urinary tract infection) Qualifiers: Urinary tract infection type: site unspecified Hematuria presence: without hematuria Qualified Code(s): N39.0 - Urinary tract infection, site not specified - Discharge Dispostion Disposition: HOME Condition at time of disposition: Stable - Prescriptions Prescriptions: Cephalexin [Keflex] 500 mg PO BID #14 capsule - Patient Instructions Printed Discharge Instructions: DI for Vertigo, DI for Urinary Tract Infection (UTI) Additional Instructions: Your Discharge Instructions: You must call primary care physician within 24 hours to arrange follow-up. Return to the Emergency Department with any new, persistent or worsening symptoms, for fever, chills, SOB, dizziness or any other concerning changes that may occur. Labor and Delivery Discharge Instructions: discharge to home maintain appointment as directed rest at home drink plenty of fluids diet as tolerated continue all home medications as directed Return to Hospital: contractions every 3 to 5 minutes decreased movement heavy vaginal bleeding rupture of membranes or "water breaks"
[2017-11-11 21:44] LABS: BASO % 0.1 % (0-2.0); EOS % 0.8 % (0-4.5); HEMATOCRIT 28.9 % (32.4-45.2); HEMOGLOBIN 9.9 GM/dL (10.7-15.3); LYMPH % 17.1 % (8-40); MCH 29.8 pg (25.7-33.7); MCHC 34.2 g/dl (32.0-36.0); MEAN CELL VOLUME 87.1 fl (80-96); MEAN PLT VOLUME 7.4 fl (7.5-11.1); MONO % 7.7 % (3.8-10.2); NEUT % 74.3 % (42.8-82.8); PLATELET COUNT 230 K/MM3 (134-434); RBC 3.32 M/mm3 (3.60-5.2); RDW 12.8 % (11.6-15.6); WHITE BLOOD COUNT 9.2 K/mm3 (4.0-10.0)
[2017-11-11 21:48] LABS: URINE APPEARANCE SLCLOUDY; URINE BILIRUBIN NEGATIVE (<2.0 mg/dL); URINE COLOR DKYELLOW; URINE GLUCOSE (UA) NEGATIVE (NEGATIVE); URINE KETONE NEGATIVE (NEGATIVE); URINE NITRITE NEGATIVE (NEGATIVE); URINE PROTEIN NEGATIVE (NEGATIVE)
[2017-11-11 21:53] LABS: URINE LEUK ESTERASE 2+ (NEGATIVE)
[2017-11-11 21:54] LABS: EPI CELLS RARE /HPF (FEW); URINE BACTERIA RARE /hpf (NONE SEEN); URINE HYALINE CAST 3 /lpf; URINE MUCUS MANY
[2017-11-11 22:01] LABS: ANION GAP 9 MMOL/L (8-16); BLOOD UREA NITROGEN 7 mg/dL (7-18); CALCIUM 8.5 mg/dL (8.5-10.1); CHLORIDE 103 mmol/L (98-107); CO2 25 mmol/L (21-32); CREATININE 0.4 mg/dL (0.55-1.02); GLUCOSE,RANDOM 87 mg/dL (74-106); POTASSIUM 4.1 mmol/L (3.5-5.1); SODIUM 137 mmol/L (136-145)
[2017-11-11] MEDS ORDERED: CEPHALEXIN MONOHYDRATE 500 MG CAPSULE (UD) PO ONE (23:03)
[2017-11-11] MEDS ORDERED: CEPHALEXIN MONOHYDRATE 250 MG CAPSULE (FP) ONE (23:20)
[2017-11-12 00:24] VITALS: BP 106/64; PULSE 86; TEMP 98.4
--- NOTE | 2017-11-12 16:27 | EKG ---
Test Reason : Blood Pressure : / mmHG Vent. Rate : 081 BPM Atrial Rate : 081 BPM P-R Int : 130 ms QRS Dur : 072 ms QT Int : 376 ms P-R-T Axes : 058 054 043 degrees QTc Int : 436 ms NORMAL SINUS RHYTHM NORMAL ECG NO PREVIOUS ECGS AVAILABLE Confirmed by Aj Hurst ([id number]) on 11/12/2017 4:27:37 PM Referred By: Confirmed By:Aj Hurst
== END 2017-11-12 00:20 | disposition home or self-care (01) ==
LOC: JER 19:56
DX: O26.893 Other specified pregnancy related conditions, third trimester (principal); O23.43 Unspecified infection of urinary tract in pregnancy, third trimester; Z3A.30 30 weeks gestation of pregnancy
CPT/HCPCS: 36415; 80048; 81003; 81015; 85025; 87077; 87086; 93005; 93010; 99284-25

== ENCOUNTER 2018-01-24 17:00 | Inpatient (IN) | payer OTHER ==
[2018-01-24 17:35] VITALS: BMI 26.9
[2018-01-24] MEDS ORDERED: DINOPROSTONE 10 MG VAGINAL SUPPOSITORY VG ONE (18:00)
[2018-01-24] MEDS ORDERED: DEXTROSE 5%-LACTATED RINGERS 1,000 ML IV SCH ×2 (18:15→18:30)
[2018-01-24] MEDS ORDERED: SODIUM PHOSPHATE/NA BIPHOS 133 ML ENEMA PR ONE (18:15)
[2018-01-24] MEDS ORDERED: BUTORPHANOL TARTRATE 1 MG/ML VIAL IVPB ONE (18:30)
[2018-01-24] MEDS ORDERED: PROMETHAZINE HCL 25 MG/1 ML VIAL IVPUSH ONE (18:30)
--- NOTE | 2018-01-24 18:32 | HP ---
Past Medical History - Primary Care Physician PCP:: Rashida Patel - Admission Chief Complaint: 27 yrs 41 weeks by dates & sono is admitted for Induction of labor History of Present Illness: pnc at 2, [facility] wt gain 14 lbs work Up : 06/19/17 A Pos, Rpr nr, Hbsag neg,Hiv nr, Rubella immune, Sickle neg , gc/ct neg 10/07/17 : Quantiferon neg, Rpr nr, 1 hr GCT 138 12/18/17 : h/h 11.1/32.5, fvu005, gc /ct neg, hiv nr h/o serial sono done for growth AFP/NT screen neg 01/20 sono 40.3 weeks,vx, bpp 8/8, silvia 11.1 efw 7'9" History Source: Patient, Medical Record Limitations to Obtaining History: No Limitations - Past Medical History 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: Alzheimer's, CVA, Dementia, Migraine, Multiple Sclerosis, Peripheral Neuropathy, Parkinson's, Seizure, Syncope, TIA, Vertigo, Other Cardiovascular: No: AFIB, Aneurysm, Aortic Insufficiency, Aortic Stenosis, CAD, CHF, Deep Vein Thrombosis, HTN, Hyperlipdemia, NC, Mitral Insufficiency, Mitral Stenosis, Murmur, Pulmonary Hypertension, Other Pulmonary: No: Asthma, Bronchitis, Cancer, COPD, O2 Dependent, Pneumonia, Previously Intubated, Pulmonary Embolus, Pulmonary Fibrosis, Sleep Apnea, Other Gastrointestinal: No: Ascites, Cancer, Constipation, Crohn's Disease, Diverticulitis, Diverticulosis, Esophageal Varices, Gastritis, GERD, GI Bleed, Hemorrhoids, Hiatal Hernia, Inflamatory Bowel Disease, Irritable Bowel Disease, Pancreatitis, Peptic Ulcer Disease, Ulcerative Colitis, Other Hepatobiliary: No: Cirrhosis, Cholelithiasis, Cholecystitis, Choledocholithiasis , Hepatitis A, Hepatitis B, Hepatitis C, Other Renal/: No: Renal Failure, Renal Inusuff, BPH, Cancer, Hematuria, Hemodialysis , Neurogenic Bladder, Renal Calculi, UTI, Other Reproductive: No: Ectopic , Endometriosis, Fibroids, PID, Polycystic Ovary Syndrome, Postmenopausal, Other ...: 1 ...Para: 0 ...LMP: 04/13/17 ... Weeks Gestation by Dates: 40.6 ...EDC by Dates: 01/18/18 ...EDC by Sono: 01/17/18 (41 weeks ) Heme/Onc: Yes: Anemia (iron deff , takes pnv & iron irrefularly) Infectious Disease: No: AIDS, HIV, STD's, Tuberculosis Psych: No: Addictions, Anxiety, Bipolar, Depression, Panic, Psychosis, Schizophrenia Endocrine: No: Diabetes Mellitus, Hyperthyroidism, Hypothyroidism - Past Surgical History Past Surgical History: Yes: None Hx Myomectomy: No Hx Transabdominal Cerclage: No - Smoking History Smoking history: Never smoked Have you smoked in the past 12 months: No Aproximately how many cigarettes per day: 0 - Alcohol/Substance Use Hx Alcohol Use: No History of Substance Use: reports: None Home Medications - Allergies Allergies/Adverse Reactions: Allergies Allergy/AdvReac Type Severity Reaction Status Date / Time No Known Allergies Allergy Verified 08/03/17 23:04 - Home Medications Home Medications: Ambulatory Orders Ferrous Sulfate [Iron] 325 mg PO DAILY 01/20/18 Pnv No.103/Folic/Om3s/Fish Oil [ Gummies] 1 each PO DAILY 01/20/18 Physical Exam - Maternity Vital Signs: BP 11/70 Pulse 81 Temp 97.9 Wt 157 ' Constitutional: Yes: Well Nourished, No Distress, Other (nervous) Eyes: Yes: WNL HENT: Yes: WNL, Normocephalic Neck: Yes: WNL Cardiovascular: Yes: WNL, Regular Rate and Rhythm Lungs: Clear to auscultation Breast(s): Yes: WNL. No: Mass - Abdominal Exam/OB Fundal Height: 38 Number of Fetuses: Single Presentation: Vertex Contractions: No Monitor Mode: External Heart Rate (range): 150 Category: I Accelerations: Uniform Decelerations: None - Vaginal Exam/OB Vaginal Bleediing: No Dilatation (cm): close, Effacement (%): unefface Amniotic Membrane Status: Intact Presentation: Vertex/Position (cx is posterior, firm) Station: -3 - Physical Exam Musculoskeletal: Yes: WNL Extremities: Yes: WNL. No: Calf Tenderness Edema: Yes Edema: LLE: 1+, RLE: 1+ Deep Tendon Reflex Grade: Normal +2 ...Motor Strength: WNL Psychiatric: Yes: WNL, Alert, Oriented - Labs Lab Results: Selected Entries 01/24/18 17:27 Weight 157 lb Laboratory Tests 01/24/18 01/24/18 01/24/18 18:26 18:26 18:26 WBC 8.5 Hgb 11.5 Hct 34.5 D Plt Count 253 PT with INR 10.60 INR 0.90 PTT (Actin FS) 27.4 Sodium 136 Potassium 4.1 Chloride 105 Carbon Dioxide 21 BUN 7 Creatinine 0.5 L Random Glucose 63 L Calcium 8.3 L Blood Type 01/24/18 20:00 WBC Hgb Hct Plt Count PT with INR INR PTT (Actin FS) Sodium Potassium Chloride Carbon Dioxide BUN Creatinine Random Glucose Calcium Blood Type A POSITIVE Problem List - Problems (1) Post-term , 40-42 weeks of gestation Code(s): O48.0 - POST-TERM (2) Encounter for induction of labor Code(s): Z34.90 - ENCNTR FOR SUPRVSN OF NORMAL , UNSP, UNSP TRIMESTER Assessment/Plan 27 yrs 41 weeks, gbs neg , admitted for induction of labor Plan cervidil induction of labor trial of vaginal delivery
[2018-01-24 18:35] LABS: BASO % 0.2 % (0-2.0); EOS % 0.2 % (0-4.5); HEMATOCRIT 34.5 % (32.4-45.2); HEMOGLOBIN 11.5 GM/dL (10.7-15.3); LYMPH % 19.2 % (8-40); MCH 28.9 pg (25.7-33.7); MCHC 33.4 g/dl (32.0-36.0); MEAN CELL VOLUME 86.6 fl (80-96); MEAN PLT VOLUME 7.6 fl (7.5-11.1); MONO % 5.6 % (3.8-10.2); NEUT % 74.8 % (42.8-82.8); PLATELET COUNT 253 K/MM3 (134-434); RBC 3.99 M/mm3 (3.60-5.2); RDW 16.1 % (11.6-15.6); WHITE BLOOD COUNT 8.5 K/mm3 (4.0-10.0)
[2018-01-24 19:00] LABS: INR 0.9 (0.83-1.09); PROTHROMBIN TIME (PATIENT) 10.6 SEC (9.7-13.0)
[2018-01-24 19:03] LABS: ACTIVATED PTT 27.4 SECONDS (25.2-36.5)
[2018-01-24 19:14] LABS: ANION GAP 10 MMOL/L (8-16); BLOOD UREA NITROGEN 7 mg/dL (7-18); CALCIUM 8.3 mg/dL (8.5-10.1); CHLORIDE 105 mmol/L (98-107); CO2 21 mmol/L (21-32); CREATININE 0.5 mg/dL (0.55-1.3); GLUCOSE,RANDOM 63 mg/dL (74-106); POTASSIUM 4.1 mmol/L (3.5-5.1); SODIUM 136 mmol/L (136-145)
--- NOTE | 2018-01-24 23:24 | PN ---
Progress Note (short form) - Note Progress Note: pt s/p cervidil insertion at 6.00 PM 01/24/18 pt c/o pain on & off cramps since 9.00 pM monitor showed irregular UC ,fhr cat-1 IV fluids started at 9.30 pM , 500 ml/hr floowed by 250.ml /hr pt satated she had not tken po fluids or food today, she was npo when she arrived she had dinner at 7.30 pM presently she has vvomitted couple of times 11.00 c/o pain untolerable , uc mild q1-2-3 min lasting 30 sec, fhr cat-1 pelvic ex , cx close, post, soft , vx -3 Selected Entries 01/24/18 22:00 Temperature 99.1 F Pulse Rate 103 H Blood Pressure 106/[address] iv fluids supportive management offered stadol 2mg + phenrgan prn Problem List - Problems (1) Post-term , 40-42 weeks of gestation Code(s): O48.0 - POST-TERM (2) Encounter for induction of labor Code(s): Z34.90 - ENCNTR FOR SUPRVSN OF NORMAL , UNSP, UNSP TRIMESTER
[2018-01-25] MEDS ORDERED: PROMETHAZINE HCL 25 MG/1 ML VIAL ONE (03:03)
[2018-01-25] MEDS ORDERED: BUTORPHANOL TARTRATE 1 MG/ML VIAL ONE ×2 (03:03)
--- NOTE | 2018-01-25 06:17 | PN ---
Progress Note (short form) - Note Progress Note: 27 yrs s/p. cervidil induction for 12 hrs 01/25/18 , 6.00 AM cervidil removed . cx FT/60 %/SC /post/vx -3 Selected Entries 01/25/18 01/25/18 01/25/18 02:00 03:00 04:00 Temperature 98.6 F Pulse Rate 89 87 79 Blood Pressure 107/68 115/64 118/71 01/25/18 05:00 Temperature Pulse Rate 76 Blood Pressure 108/69 montor UC irregular, mild , q 3-4 min , FHR 135 reactive cat-1 pt s/p Stadol 2 mg + Phenrgan 25 mg IV at 3.30 AM pt resting &sleeping pt is told , still latent labor , some change in cervix Plan Pitocin induction Problem List - Problems (1) Post-term , 40-42 weeks of gestation Code(s): O48.0 - POST-TERM (2) Encounter for induction of labor Code(s): Z34.90 - ENCNTR FOR SUPRVSN OF NORMAL , UNSP, UNSP TRIMESTER
[2018-01-25] MEDS ORDERED: OXYTOCIN 30 UNITS in 0.9% NS 30 UNIT/500 ML INFUS.BAG IVPB SCH (06:30)
[2018-01-25] MEDS ORDERED: NALOXONE HCL 0.4 MG/ML VIAL IVPUSH PRN (08:50)
[2018-01-25] MEDS ORDERED: LIDO 2%/EPI 1:200000 PRESRVFRE (20 ML SDVIAL) ONE (08:58)
[2018-01-25] MEDS ORDERED: FENTANYL/BUPIVACAINE/NS/PF - PCEA - 50 ML DISP.SYRIN EP SCH (09:00)
[2018-01-25] MEDS ORDERED: FENTANYL/BUPIVACAINE/NS/PF - PCEA - 50 ML DISP.SYRIN EP ONE ×2 (10:49→14:49)
--- NOTE | 2018-01-25 11:05 | PN ---
Progress Note (short form) - Note Progress Note: pt c/o pain '8.40AM , FT/60 %/[place] /Vx-3/-2 , /pelvis ?adequate Fhr 140-150 , cat-1 , UC 2-4 min irregular 10.45 AM cx 2 cm/100/[place] /Vx -2 /Pelvis ? adequate UC 1-2-3 min , Fhr 140--150 cat-1 Selected Entries 01/25/18 01/25/18 01/25/18 08:00 09:00 10:00 Temperature 98.3 F 98.4 F Pulse Rate 71 72 68 Blood Pressure 106/56 L 122/75 117/67 pt very uncomfortable Plan epidural labor analgesia ct Pitocin Augmentation ( started at 6.30 AM ) ct Trial of labor Problem List - Problems (1) Post-term , 40-42 weeks of gestation Code(s): O48.0 - POST-TERM (2) Encounter for induction of labor Code(s): Z34.90 - ENCNTR FOR SUPRVSN OF NORMAL , UNSP, UNSP TRIMESTER
[2018-01-25] MEDS ORDERED: ELECTROLYTE-148 SOLN 500 ML IV ONE (11:09)
[2018-01-25] MEDS ORDERED: ELECTROLYTE-148 SOLN 1,000 ML IV SCH (12:09)
--- NOTE | 2018-01-25 14:29 | PN ---
Progress Note, Labor Vaginal Exam #1 Labor Exam Date: 01/25/18 Labor Exam Time: 14:20 Heart Rate (range): 140 Dilatation: 5 Effacement (%): 100 Amniotic Membrane Status: Ruptured (SROM clear) Presentation: Vertex/Position Station: -1 (-1/0) Remarks: fhr tracing cat-1 uc 2-3 min pitocin 16 ml/hr epidural started at 10.55 AM Vaginal Exam #2 Labor Exam Date: 01/25/18 Labor Exam Time: 15:05 Heart Rate (range): 120 Dilatation: 10 Effacement (%): 100 Amniotic Membrane Status: Ruptured Presentation: Vertex/Position Station: +3 (+2/+3) Remarks: fhr cat-2 uc q1-2min pt wants to push Selected Entries 01/25/18 01/25/18 01/25/18 13:15 13:50 15:00 Temperature 98.2 F Pulse Rate 79 68 Blood Pressure 93/61 121/70
[2018-01-25] MEDS ORDERED: OXYTOCIN 20 UNITS in 0.9% NS 20 UNIT/1,000 ML INFUS.BAG IV ONE ×2 (15:13→16:46)
[2018-01-25] MEDS ORDERED: LIDOCAINE HCL 1% PRESERVATIVE FREE - 30ML VIAL ONE (15:13)
[2018-01-25 15:50] LABS: ARTERIAL BLD GAS O2 SATURATION 9.7 % (90-98.9); ARTERIAL BLOOD GAS BASE EXCESS -1.8 meq/l (-2-2); ARTERIAL BLOOD GAS PCO2 63.7 mmHg (35-45); ARTERIAL BLOOD GAS PO2 11.1 mmHg (80-100); ARTERIAL BLOOD GAS pH 7.25 (7.35-7.45)
[2018-01-25 15:51] LABS: VENOUS PC02 44.8 mmHg (38-52); VENOUS PH 7.35 (7.32-7.42); VENOUS PO2 25.2 mmHg (28-48)
[2018-01-25] MEDS ORDERED: WITCH HAZEL 50% (TUCKS) 40 PAD/JAR PAD TP PRN (16:19)
[2018-01-25] MEDS ORDERED: BISACODYL 10 MG SUPP.RECT RC PRN (16:19)
[2018-01-25] MEDS ORDERED: METHYLERGONOVINE MALEATE 0.2 MG/1 ML AMP IM PRN (16:19)
[2018-01-25] MEDS ORDERED: BENZOCAINE 28 GM HEMORRHOIDAL OINTMENT TP PRN (16:19)
[2018-01-25] MEDS ORDERED: oxyCODONE HCL 5 MG TABLET PO PRN (16:19)
[2018-01-25] MEDS ORDERED: BENZOCAINE 20% 57 GM BOTTLE TP PRN (16:19)
[2018-01-25] MEDS ORDERED: OXYTOCIN 20 UNITS in 0.9% NS 20 UNIT/1,000 ML INFUS.BAG IV SCH (16:30)
--- NOTE | 2018-01-25 16:31 | PN ---
Delivery - Delivery Vaginal Delivery: No Problems, Spontaneous Type of Anesthesia: Local, Epidural Episiotomy/Laceration: Midline (episiotomy sutured in layers with chr catgut #2/ 0 . 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
[2018-01-25] MEDS: FERROUS SO4 325 MG TABLET (FP) PO SCH (19:15)
[2018-01-25] MEDS: ACETAMINOPHEN 325 MG TABLET (FP) PO PRN (20:36)
[2018-01-25] MEDS: IBUPROFEN 600 MG TABLET (FP) PO PRN (20:37)
[2018-01-26] MEDS: IBUPROFEN 600 MG TABLET (FP) PO PRN ×3 (00:16→21:28)
[2018-01-26] MEDS: ACETAMINOPHEN 325 MG TABLET (FP) PO PRN ×3 (00:17→21:28)
[2018-01-26 08:20] LABS: BASO % 0.2 % (0-2.0); HEMOGLOBIN 9.6 GM/dL (10.7-15.3); LYMPH % 15.7 % (8-40); MCH 29.1 pg (25.7-33.7); MCHC 33.1 g/dl (32.0-36.0); MEAN CELL VOLUME 87.9 fl (80-96); MEAN PLT VOLUME 7.9 fl (7.5-11.1); NEUT % 77.1 % (42.8-82.8); PLATELET COUNT 198 K/MM3 (134-434); RDW 15.9 % (11.6-15.6); WHITE BLOOD COUNT 14.1 K/mm3 (4.0-10.0)
[2018-01-26] MEDS: PRENATAL VITAMINS W/ FOLIC ACID TABLET (FP) PO SCH (09:49)
[2018-01-26] MEDS: FERROUS SO4 325 MG TABLET (FP) PO SCH ×2 (09:49→17:45)
--- NOTE | 2018-01-26 10:01 | PN ---
Post Progress Note - Subjective Subjective: c/o fatigue Post Day: 1 Type of Delivery: Vital Signs: Vital Signs Temperature 97.8 F 01/26/18 06:00 Pulse Rate 89 01/26/18 06:00 Respiratory Rate 20 01/26/18 06:00 Blood Pressure 101/61 01/26/18 06:00 O2 Sat by Pulse Oximetry (%) 79 L 01/25/18 15:00 Breast Exam: Yes: Soft, Other (bottle feeding ). No: Engorged Uterus: Yes: Fundus Firm, Fundus below umbilicus, Non-tender Lochia: Yes: Rubra Lochia, amount: Moderate Extremities: Yes: Calves non-tender Perineum: Yes: Episiotomy (healing well ) Activity: Ambulating - Labs Labs: CBC WBC 14.1 K/mm3 (4.0-10.0) H 01/26/18 07:20 RBC 3.30 M/mm3 (3.60-5.2) L 01/26/18 07:20 Hgb 9.6 GM/dL (10.7-15.3) L 01/26/18 07:20 Hct 29.0 % (32.4-45.2) L D 01/26/18 07:20 MCV 87.9 fl (80-96) 01/26/18 07:20 MCH 29.1 pg (25.7-33.7) 01/26/18 07:20 MCHC 33.1 g/dl (32.0-36.0) 01/26/18 07:20 RDW 15.9 % (11.6-15.6) H 01/26/18 07:20 Plt Count 198 K/MM3 (134-434) D 01/26/18 07:20 MPV 7.9 fl (7.5-11.1) 01/26/18 07:20 Absolute Neuts (auto) 10.8 K/mm3 (1.5-8.0) H 01/26/18 07:20 Neutrophils % 77.1 % (42.8-82.8) 01/26/18 07:20 Lymphocytes % 15.7 % (8-40) 01/26/18 07:20 Monocytes % 7.0 % (3.8-10.2) 01/26/18 07:20 Eosinophils % 0.0 % (0-4.5) D 01/26/18 07:20 Basophils % 0.2 % (0-2.0) 01/26/18 07:20 Nucleated RBC % 0 % (0-0) 01/26/18 07:20 Problem List - Problems (1) Post-term , 40-42 weeks of gestation Code(s): O48.0 - POST-TERM (2) Encounter for induction of labor Code(s): Z34.90 - ENCNTR FOR SUPRVSN OF NORMAL , UNSP, UNSP TRIMESTER (3) Vaginal abrasion, delivered, current hospitalization Code(s): O71.4 - OBSTETRIC HIGH VAGINAL LACERATION ALONE (4) Encounter for visit Code(s): Z39.2 - ENCOUNTER FOR ROUTINE FOLLOW-UP (5) Anemia Code(s): D64.9 - ANEMIA, UNSPECIFIED Assessment/Plan stable Plan ct pp care discharge tomorrow.
[2018-01-26] MEDS ORDERED: SENNOSIDES/DOCUSATE COMBO (SENNA PLUS) TABLET (UD) PO PRN (22:00)
--- NOTE | 2018-01-27 07:17 | DS ---
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 Breast not engorged Bottle feeding) Musculoskeletal: Yes: WNL Extremities: Yes: WNL. No: Calf Tenderness Edema: LLE: Trace, RLE: Trace Integumentary: Yes: Tattoos Neurological: Yes: WNL ...Motor Strength: WNL Psychiatric: Yes: WNL Labs: CBC, BMP 01/26/18 07:20 01/24/18 18:26 Delivery - Delivery Vaginal Delivery: No Problems, Spontaneous Type of Anesthesia: Local, Epidural Episiotomy/Laceration: Midline (episiotomy sutured in layers with chr catgut #2/ 0 . pr exam mucosa & sphincter was intact) EBL (cc): 300 Delivery, Single - Stages of Labor Date 1st Stage Initiatied: 01/25/18 Time 1st Stage Initiated: 02:00 Date 2nd Stage Initiated: 01/25/18 Time 2nd Stage Initiated: 15:05 Date of Delivery: 01/25/18 Time of Delivery: 15:30 Time Placenta Delivered: 15:37 Placenta: Yes: Spontaneous, Uterine Exploration - Condition of Infant Rehab Therapist/I&C Tech Present: No Gender: Female Weight: 7 lb 14 oz Position: Left, OA Total Hours ROM (Hrs/Mins): 1hr 10min - 1 Minute Total Score: 8 5 Minutes Total Score: 9 - [place] Feeding Plan Initial Plan: Elected not to breastfeed exclusively throughout hospitalization Remarks - Remarks Remarks: 27 yrs 41 weeks gestation , gbs neg , pnc at 2, [facility] admitted on 01/24/18 for induction of labor , cervidil placed 01/25/18 pitocin induction started stadol 2 mg + phenrgan 25 mg iv fpr labor analgesia was followed by epidural labor analgesia intrapartum course uneventful course uneventful anemia counselled discharge today Discharge Summary Reason For Visit: CERVIDIL INDUCTION Current Active Problems Anemia (Acute) Encounter for induction of labor (Acute) Encounter for visit (Acute) Post-term , 40-42 weeks of gestation (Acute) Vaginal abrasion, delivered, current hospitalization (Acute) Condition: Stable - Instructions Diet, Activity, Other Instructions: Post Instructions DIET: Continue good diet high in protein, calcium, and iron rich foods. Drink at least eight (8) glasses of water daily in addition to other fluids. ct Regular diet MEDICATIONS: Continue vitamins and iron as previously directed. Motrin and Tylenol may be taken for minor discomfort. ACTIVITY: Mild to moderate exercise may be started in two (2) weeks. Take frequent rest periods. Resume normal activity after six (6) week check up. WOUND CARE OF OPERATIVE SITE: Continue use of perineal bottle until vaginal discharge stops. Keep area clean. Shower daily. Keep abdominal wound dry. Report any drainage or redness to physician. Tub baths, tampons and douches are not permitted for 6 weeks. ____ Breast feeding ct Bottle feeding BREAST CARE: (For those that are not ): If engorgement occurs: Wear tight fitting bra. Take Tylenol or Motrin for pain. Apply cold packs (ice in bags to each breast ) FAMILY PLANNING: There are many control alternatives to pursue and they should be discussed at your first office visit. You may resume sexual activity after your six (6) week check up. (Remember, is not a contraceptive) NEXT PHYSICIAN APPOINTMENT: Be certain to call for a four (4 ) week appointment, unless otherwise directed. Call Clinic or got to Emergency Dept if you have any of the following: Heavy vaginal bleeding Painful urination Leg pain Unusual odor noted to vaginal bleeding High fever Red streaking noted on breast Referrals: Rashida Patel MD [Staff Physician] - Disposition: HOME - Home Medications Comprehensive Discharge Medication List: Ambulatory Orders Ferrous Sulfate [Iron] 325 mg PO DAILY 01/20/18 Pnv No.103/Folic/Om3s/Fish Oil [ Gummies] 1 each PO DAILY 01/20/18 Acetaminophen [Tylenol .Regular Strength -] 650 mg PO Q3H PRN tablet 01/26/18 Benzocaine [Americaine 20% [place] -] 1 spray TP PRN PRN bottle 01/26/18 Ferrous Sulfate [Feosol] 325 mg PO BIDWM ud 01/26/18 Ibuprofen [Motrin -] 200 mg PO Q4H PRN tablet 01/26/18 Vitamins (Sjr) - 1 tab PO DAILY tablet 01/26/18 Witch Concepcion 50% (Tucks) [Tucks Pads -] 1 pad TP PRN PRN pad 01/26/18
[2018-01-27] MEDS: FERROUS SO4 325 MG TABLET (FP) PO SCH (08:32)
[2018-01-27 09:04] VITALS: BP 109/63; PULSE 87; TEMP 98.4
[2018-01-27] MEDS: PRENATAL VITAMINS W/ FOLIC ACID TABLET (FP) PO SCH (09:38)
== END 2018-01-27 12:30 | disposition home or self-care (01) | DRG 560 ==
LOC: JLDR 17:00 → J3W 01-25 17:00
PROVIDERS: ADMIT Obstetrics & Gynecology; ATTEND Obstetrics & Gynecology
PROC: 0W8NXZZ Division of Female Perineum, External Approach (ICD-10-PCS; principal; 2018-01-25)
PROC: 10E0XZZ Delivery of Products of Conception, External Approach (ICD-10-PCS; 2018-01-25)
DX: O48.0 Post-term pregnancy (principal); O99.02 Anemia complicating childbirth; Z3A.41 41 weeks gestation of pregnancy; Z37.0 Single live birth
CPT/HCPCS: 36415; 36600; 59409; 80048; 82803; 85025; 85610; 85730; 86593; 86850; 86900; 86901

== ENCOUNTER 2018-04-02 14:25 | Emergency (ER) | payer OTHER ==
--- NOTE | 2018-04-02 14:29 | PDOC ---
Rapid Medical Evaluation Chief Complaint: Urinary Problem Time Seen by Provider: 04/02/18 14:28 Medical Evaluation: Allergies Allergy/AdvReac Type Severity Reaction Status Date / Time No Known Allergies Allergy Verified 08/03/17 23:04 04/02/18 14:28 I performed a brief in-person evaluation of this patient. Chief complaint is: Dysuria x 2 days, pt is 2 months post- Pertinent physical exam findings include: No distress, well-appearing, afebrile I have ordered the following: UA/culture, pgu Patient will proceed to the ED for further evaluation. Discharge Disposition - Diagnosis Dysuria - Referrals - Patient Instructions - Post Discharge Activity
[2018-04-02 14:32] VITALS: BP 116/75; PULSE 72; TEMP 98.2
[2018-04-02 15:02] LABS: URINE APPEARANCE CLOUDY; URINE BILIRUBIN NEGATIVE (<2.0 mg/dL); URINE COLOR YELLOW; URINE GLUCOSE (UA) NEGATIVE (NEGATIVE); URINE KETONE NEGATIVE (NEGATIVE); URINE LEUK ESTERASE 3+ (NEGATIVE); URINE NITRITE NEGATIVE (NEGATIVE); URINE PROTEIN 2+ (NEGATIVE); URINE UROBILINOGEN NEGATIVE mg/dL (0.2-1.0)
--- NOTE | 2018-04-02 15:28 | PDOC ---
History of Present Illness - General Chief Complaint: Urinary Problem Stated Complaint: UTI Time Seen by Provider: 04/02/18 14:28 History Source: Patient Exam Limitations: No Limitations Past History - Past Medical History Allergies/Adverse Reactions: Allergies Allergy/AdvReac Type Severity Reaction Status Date / Time No Known Allergies Allergy Verified 08/03/17 23:04 Home Medications: Ambulatory Orders Cephalexin [Keflex] 500 mg PO BID #14 capsule 04/02/18 Asthma: No Cancer: No Cardiac Disorders: No COPD: No Diabetes: No HTN: No Seizures: No Thyroid Disease: No - Suicide/Smoking/Psychosocial Hx Smoking Status: Yes Smoking History: Never smoked Have you smoked in the past 12 months: No Number of Cigarettes Smoked Daily: 0 Information on smoking cessation initiated: No 'Breaking Loose' booklet given: 07/25/14 Hx Alcohol Use: No Drug/Substance Use Hx: No Substance Use Type: None Hx Substance Use Treatment: No *Physical Exam - Vital Signs Last Vital Signs Temp Pulse Resp BP Pulse Ox 98.2 F 72 18 116/75 98 04/02/18 14:28 04/02/18 14:28 04/02/18 14:28 04/02/18 14:28 04/02/18 14:28 - Physical Exam General Appearance: No: Apparent Distress Respiratory/Chest: positive: Lungs Clear, Normal Breath Sounds. negative: Respiratory Distress Cardiovascular: positive: Regular Rhythm, Regular Rate, S1, S2. negative: Murmur Gastrointestinal/Abdominal: positive: Normal Bowel Sounds, Soft. negative: Tender, Distended, Guarding, Rebound Musculoskeletal: negative: CVA Tenderness Integumentary: positive: Normal Color Neurologic: positive: Fully Oriented, Alert, Normal Mood/Affect Moderate Sedation - Procedure Monitoring Vital Signs: Procedure Monitoring Vital Signs Temperature 98.2 F 04/02/18 14:28 Pulse Rate 72 04/02/18 14:28 Respiratory Rate 18 04/02/18 14:28 Blood Pressure 116/75 04/02/18 14:28 O2 Sat by Pulse Oximetry (%) 98 04/02/18 14:28 ED Treatment Course - ADDITIONAL ORDERS Additional order review: Laboratory Results 04/02/18 14:30 Urine Color Yellow Urine Appearance Cloudy Urine pH 5.0 Ur Specific [place] 1.020 Urine Protein 2+ H Urine Glucose (UA) Negative Urine Ketones Negative Urine Blood 1+ H Urine Nitrite Negative Urine Bilirubin Negative Urine Urobilinogen Negative Ur Leukocyte Esterase 3+ H Medical Decision Making - Medical Decision Making 27 y/o F with no sig pmh, currently 2 months (not ), presents with dysuria, increased frequency and urgency from yesterday. Also mentions noting some light pinkish color to urine. Denies fever, chills, sob, cp , abd pain, n/v, flank pain UA + for UTI Prior urine cultures were reviewed Patient started on Keflex 04/02/18 15:23 *DC/Admit/Observation/Transfer Diagnosis at time of Disposition: UTI (urinary tract infection) Qualifiers: Urinary tract infection type: acute cystitis Hematuria presence: with hematuria Qualified Code(s): N30.01 - Acute cystitis with hematuria - Discharge Dispostion Disposition: HOME Condition at time of disposition: Stable Decision to Admit order: No - Prescriptions Prescriptions: Cephalexin [Keflex] 500 mg PO BID #14 capsule - Referrals - Patient Instructions Printed Discharge Instructions: DI for Urinary Tract Infection (UTI) Additional Instructions: Thank you for choosing [facility]. It was a pleasure taking care of you. You were found to have urine infection, for which you were prescribed antibiotics Please take as prescribed Drink plenty of water - at least 2 L of water daily Follow-up with your PCP in 2-3 days Return to the Emergency Department if your symptoms worsen or persist, you have fever, shortness of breath, chest pain, severe abdominal pain, vomiting, severe flank pain or other concerning symptoms. - Post Discharge Activity
[2018-04-02 15:31] LABS: EPI CELLS FEW /HPF (FEW); URINE BACTERIA FEW /hpf (NONE SEEN)
[2018-04-02] MEDS ORDERED: CEPHALEXIN MONOHYDRATE 500 MG CAPSULE (UD) PO ONE (15:47)
[2018-04-02] MEDS ORDERED: CEPHALEXIN MONOHYDRATE 500 MG CAPSULE (UD) ONE (15:48)
[2018-04-02 23:12] LABS: HCG,QUALITATIVE URINE Negative
== END 2018-04-02 15:57 | disposition home or self-care (01) ==
LOC: JERFT 14:25
DX: N30.01 Acute cystitis with hematuria (principal)
CPT/HCPCS: 81003; 81015; 84703; 87086; 87186; 99281-25